=== PATIENT | male | born 1985 | race Caucasian/White ===

== ENCOUNTER 2017-11-20 13:04 | Inpatient (IN) | payer MEDICARE ==
[2017-11-20 14:38] LABS: BASO # 0.1 K/uL (0.0-0.2); BASO % 0.8 % (0.0-2.0); EOS % 0.2 % (0.0-4.0); HEMOGLOBIN 14.1 g/dL (12.0-18.0); LYMPH % 26.1 % (20.0-40.0); MEAN CELL VOLUME 87.2 fL (80.0-94.0); MEAN CORPUSCULAR HGB CONC 34.4 g/dL (33.0-37.0); MEAN PLATELET VOLUME 8.5 fL (7.2-11.7); MONO # 0.6 K/uL (0.0-0.8); MONO % 8.4 % (0.0-10.0); NEUT # 4.9 K/uL (1.8-7.0); NEUT % 64.5 % (50.0-75.0); NRBC % 0.1 % (0.0-2.0); RBC 4.7 Mil/uL (4.40-5.90); RED CELL DISTRIBUTION WIDTH 14.3 % (11.5-14.5); WHITE BLOOD COUNT 7.6 K/uL (4.8-10.8)
[2017-11-20 15:14] LABS: ACETAMINOPHEN < 10.0 ug/mL (10.0-30.0); ALB/GLOB RATIO 1.8 (1.0-2.1); ALBUMIN 4.7 g/dL (3.5-5.0); ALT/SGPT 70 U/L (21-72); AST/SGOT 58 U/L (17-59); BLOOD UREA NITROGEN 14 mg/dL (9-20); CALCIUM 9.4 mg/dl (8.6-10.4); GFR AFRICAN-AMERICAN > 60; GFR NON-AFRICAN AMERICAN > 60; SALICYLATE < 1.0 mg/dL 1
[2017-11-20 15:50] LABS: URINE BACTERIA RARE (<OCC); URINE BILIRUBIN NEGATIVE (NEGATIVE); URINE BLOOD NEGATIVE (NEGATIVE); URINE CLARITY Clear (Clear); URINE COLOR Amber (YELLOW); URINE GLUCOSE (UA) NORMAL (Normal); URINE LEUKOCYTE ESTERASE NEG Leu/uL (Negative); URINE PROTEIN 1+ mg/dL (NEGATIVE)
[2017-11-20 16:14] LABS: BARBITURATES, UR NEGATIVE (NEGATIVE); BENZODIAZEPINES, UR NEGATIVE (NEGATIVE); OPIATES, UR NEGATIVE (NEGATIVE); PHENCYCLIDINE, UR NEGATIVE (NEGATIVE)
--- NOTE | 2017-11-20 17:03 | CT ---
PROCEDURE: CT HEAD WITHOUT CONTRAST. HISTORY: AMS COMPARISON: None available. TECHNIQUE: Axial computed tomography images were obtained through the head/brain without intravenous contrast. Radiation dose: Total exam DLP = 954.36 mGy-cm. This CT exam was performed using one or more of the following dose reduction techniques: Automated exposure control, adjustment of the mA and/or kV according to patient size, and/or use of iterative reconstruction technique. FINDINGS: HEMORRHAGE: No acute parenchymal, subarachnoid or extra-axial hemorrhage. BRAIN: There appears to be some mild localized of encephalomalacia changes inferior frontal poles bilaterally, the appearance and location which suggests sequela of old trauma. . VENTRICLES: No obstructive hydrocephalus. CALVARIUM: There are no acute calvarial fracture seen. PARANASAL SINUSES: Unremarkable as visualized. No significant inflammatory changes. MASTOID AIR CELLS: Unremarkable as visualized. No inflammatory changes. OTHER FINDINGS: Orbits and contents unremarkable IMPRESSION: No acute intracranial hemorrhage. Mild encephalomalacia changes inferior frontal poles bilaterally the appearance and location which suggests the sequela of old trauma Findings discussed with Dr. Garcia at approximately 5 p.m. with written down and read back verification.
--- NOTE | 2017-11-20 23:58 | C.PDOC ---
History Of Present Illness Pt was found outside by EMS acting strange. Time Seen by Provider: 11/20/17 14:17 Chief Complaint (Nursing): Psychiatric Evaluation History Per: EMS History/Exam Limitations: clinical condition Onset/Duration Of Symptoms: Unknown (today) Current Symptoms Are (Timing): Still Present Modifying Factor(s): Marijuana Severity: Severe Additional History Per: Prior Records, Girlfriend, Law Enforcement Past Medical History Reviewed: Historical Data, Nursing Documentation, Vital Signs Vital Signs: Last Vital Signs Temp 98.5 F 11/20/17 21:24 Pulse 83 11/21/17 00:32 Resp 18 11/21/17 00:32 BP 126/73 11/21/17 00:32 Pulse Ox 97 11/21/17 00:32 - Medical History PMH: Schizophrenia (?) Family History: States: Unknown Family Hx - Social History Hx Alcohol Use: No Hx Substance Use: Yes - Immunization History Hx Tetanus Toxoid Vaccination: No Hx Influenza Vaccination: No Hx Pneumococcal Vaccination: No Review Of Systems Review Of Systems: ROS cannot be obtained secondary to pt's inabilty to answer questions. Physical Exam - Physical Exam Appears: Non-toxic, No Acute Distress, Other (Nonverbal. Flat affect) Skin: Normal Color, Warm, Dry, No Rash Head: Atraumatic, Normacephalic Eye(s): bilateral: PERRL, EOMI Neck: Normal ROM, No Midline Cervical Tenderness, No Step Off Deformity, Supple Cardiovascular: Rhythm Regular Respiratory: Normal Breath Sounds, No Accessory Muscle Use Gastrointestinal/Abdominal: Soft, No Tenderness Extremity: Normal ROM, No Deformity Neurological/Psych: No Normal Speech (not talking), Other (Moves extremities with command) Gait: Unable To Assess ED Course And Treatment - Laboratory Results Result Diagrams: 11/20/17 14:35 11/20/17 14:35 Lab Interpretation: No Acute Changes O2 Sat by Pulse Oximetry: 97 Pulse Ox Interpretation: Normal Progress Note: Pt was initialy a Dustin Thomas as he could not tell us his name. However we were able to identify him throught [employer] and found his girlfriend who came in and identified him. She states that he has a psych history. Pt was seen by the rock room worker who d/w Dr. Segundo. He recommended treatment with Haldol and Ativan. Pt is medically stable for psychiatric admission. Disposition - Disposition Disposition Time: 01:00 Condition: STABLE Forms: [facility] (Georgian) - Clinical Impression Clinical Impression: Schizophrenia Physician Patient Turnover Patient Signed Over To: Klaus Madsen Handoff Comments: pending psychiatric evaluation/disposition.
--- NOTE | 2017-11-21 10:32 | RAD ---
HISTORY: r/o infiltrate bed 8 COMPARISON: No prior. FINDINGS: LUNGS: No active pulmonary disease. PLEURA: No significant pleural effusion identified, no pneumothorax apparent. CARDIOVASCULAR: Normal. OSSEOUS STRUCTURES: No significant abnormalities. VISUALIZED UPPER ABDOMEN: Normal. OTHER FINDINGS: None. IMPRESSION: No active disease.
--- NOTE | 2017-11-21 12:10 | PCM.PSYCH ---
Initial Psychiatric Evaluation - Initial Psychiatric Evaluation Type of Admission: Voluntary Legal Status: Capacity Chief Complaint (in patient's own words): I became confused.' History of Present Illness and Precipitating Events: Patient is a 32-year-old single male, who lives with his GF, presented to the ED for catatonia. Patient has history of multiple inpatient psychiatric hospitalizations. He was last discharged from [facility], in 2017. Since then he is following up off and on with Dr Pope. He last saw Dr. Pope 11/14/17. As per the patient's girlfriend Thelma Sibley ([phone]), patient has a history of non- compliance with outpatient treatment and psychotropic medications especially when he feels mentally better. 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 The extra workload has been stressful and hard for him to adjust. So was partially non complaint with the meds. However, this current decompensation has been the worst. As per her he had poor sleep for past 5 days, and he is becoming more irritable and agitated since then. Yesterday he started becoming catatonic, and stopped speaking. Yesterday girlfriend left for work at 4am and when she returned at 11:30am patient and his car were missing. Girlfriend grew concerned after having no contact with patient after so long so she had a Missing Person Report with [facility] completed on him. Girlfriend denies patient using drugs but states he smokes cigarettes and drinks alcohol occasionally. She denies past/current suicidal/homicidal ideation and states he has no history of violent behavior. PMH None reported Current Medications: Active Medications Generic Name Dose Route Start Last Admin Trade Name Freq PRN Reason Stop Dose Admin Benztropine Mesylate 0.5 mg 11/21/17 10:00 11/21/17 09:34 Cogentin PO 0.5 mg BID MAHESH Administration Haloperidol 2 mg 11/21/17 10:11/21/17 09:34 Haldol PO 2 mg BID MAHESH Administration Haloperidol Lactate 5 mg 11/21/17 08:59 Haldol IM Q4H PRN Agitation Lorazepam 1 mg 11/21/17 10:00 11/21/17 09:34 Ativan PO 1 mg TID MAHESH Administration Past Psychiatric History - Past Psychiatric History Previous Treatment History: Inpatient Pertinent Medical Hx (Current Medical&Sleep Prob, Allergies): Allergies Allergy/AdvReac Type Severity Reaction Status Date / Time No Known Allergies Allergy Unverified 11/20/17 13:21 Unobtainable 11/20/17 Review of Systems - Review of Systems All systems: reviewed and no additional remarkable complaints except - Psychiatric Psychiatric: Anxiety, Auditory Hallucinations, Irritability, Mood Swings Mental Status Examination - Personal Presentation Personal Presentation: Looks stated age - Affect Affect: Broad - Motor Activity Motor Activity: Calm - Reliability in Providing Information Reliability in Providing Information: Poor, due to alteration in thoughts, Poor , due to altered mood - Speech Speech: Disorganized - Mood Mood: Anxious - Formal Thought Process Formal Thought Process: Delusions, Paranoia, Loosening of associations - Hallucinations/Delusions Delusions: Persecution - Obsessions/Compulsions Obsessions: No Compulsions: No - Cognitive Functions Orientation: Person, Place, Situation, Time Sensorium: Alert Attention/Concentration: Attentive Abstract Thinking: [place] Estimate of Intelligence: Below average Judgement: Imparied, as evidence by: Poor judgement, Imparied, as evidence by: Lack of insight into illness - Risk Risk: Diminished functioning - Strength & Assets Inventory Strength & Assets Inventory: Family support DSM 5 DX - DSM 5 DSM 5 Diagnosis: Bipolar disorder mixed severe with psychotic features r/o Schizophrenia catatonic type - Recommended/Plan of Treatment Treatment Recommendations and Plan of Treatment: Bipolar disorder mixed severe with psychotic features r/o Schizophrenia catatonic type -CBT -Psychoeducation -Supportive therapy, group therapy, individual therapy -Risperdal 2 mg PO HS -Cogentin 1 mg by mouth HS -Trazodone 50 mg by mouth daily at bedtime -Hydroxyzine 25 mg by mouth every 6 hours when necessary -Ativan 1 mg by mouth 3 times a day Cannabis use disorder moderate -Monitor signs and symptoms -Use [place] for abstinence
--- NOTE | 2017-11-21 13:21 | CARD ---
APPROVED REPORT EKG Measurement Heart [id number] <Conclusion> Unusual P axis, possible ectopic atrial rhythm Please repeat Abnormal ECG
--- NOTE | 2017-11-21 14:33 | PCM.BM ---
<Karol Kingn - Last Filed: 11/21/17 14:30> Treatment Plan Problems - Problems identified on initial assessmt Depression Date Initiated: 11/21/17 Time Initiated: 14:31 Assessment reference: NA Status: Active Anxiety Date Initiated: 11/21/17 Time Initiated: 14:31 Assessment reference: NA Status: Active Treatment assets and liabiliti Patient Assests: adapts well, cooperative, ADL independent, physically healthy, good support system Patient Liabilities: substance abuse - Milieu Protocol Maintain good personal hygiene: daily Encourage regular showers, daily Remind patient to perform daily oral care, daily Assist patient to perform ADL's Conduct patient checks and document Observation sheet: Q15 minutes Maintain personal safety: every shift Educate patient to report safety concerns to staff, every shift Monitor environment for contraband/sharps Medication safety: Monitor for expected outcome, potential side effects: every shift, Assess barriers to learning: every shift, Assess readiness for medication education: every shift <Viridiana Rendon - Last Filed: 11/23/17 11:40> Family Contact Family involvement: Family/SO is involved Family contact: Patient agrees to contact Family contact name: Mckenzie Radford-girlfriend Family contacted how many times per week?: 1 - Goals for Treatment Patient goals for treatment: "I want to go back to outpatient treatment." Discharge/Continuing Care - Education Needs Education Needs: Patient Medication, Patient Coping Skills - Discharge Discharge Criteria: Tolerates medication w/o severe side effects, Free of paranoid thoughts, Reduction of target symptoms Discharge to:: Home, With Family - Treatment Team Participation Discussed with Family/SO: No Was Patient/Family/SO present at Treatment Team Meeting: Yes <Lety Segundo - Last Filed: 11/25/17 08:08> - Diagnosis (1) Schizophrenia Status: Acute Interventions: 11/25/17 08:07 * Assess/adjust medications daily and /or as needed * See patient on an individual basis 7x/week to assess status of hallucinations * Discuss risks, benefits, side effects and alternatives of medications *
--- NOTE | 2017-11-22 16:01 | PCM.PYCHPN ---
Psychiatric Progress Note - Psychiatric Progress Note Patient seen today, length of contact: 15 min Patient Chief Complaint: I am feeling gilda.' Problems Identified/Issues Discussed: Patient seen and evaluated, chart reviewed and discussed with the nurse. Patient remained isolated, confined and withdrawn. Patient still appears catatonic and mute. He appears more organized and less internally preoccupied than yesterday He is taking medication and denies any side effects. Symptoms are improving but needs more time for stabilization. Supportive therapy and psychoeducation were given. Medication Change: Yes (increase risperdal) Medical Record Reviewed: Yes Mental Status Examination - Cognitive Function Orientation: Person, Place, Situation, Time Memory: Intact Attention: Poor Concentration: Poor Association: Loose Fund of Knowledge: Poor - Mood Mood: Anxious - Affect Affect: Flat - Speech Speech: Soft - Formal Thought Process Formal Thought Process: Delusions, Paranoia, Loosening of associations - Suicidal Ideation Suicidal Ideation: No - Homicidal Ideation Homicidal Ideation: No Goal/Treatment Plan - Goal/Treatment Plan Need for Continued Stay: Severe depression anxiety, Severe functional impairment Progress Toward Problem(s) and Goals/Treatment Plan: Bipolar disorder mixed severe with psychotic features r/o Schizophrenia catatonic type -CBT -Psychoeducation -Supportive therapy, group therapy, individual therapy -Risperdal 2 mg PO HS -Risperdal 1 mg PO daily -Start depakote 250 mg PO BID -Cogentin 0.5 mg by mouth BID -Trazodone 50 mg by mouth daily at bedtime -Hydroxyzine 25 mg by mouth every 6 hours when necessary -Ativan 1 mg by mouth 3 times a day Cannabis use disorder moderate -Monitor signs and symptoms -Use [place] for abstinence - Smoking Cessation Smoking Cessation Initiated: No
[2017-11-22] MEDS: Divalproex 250 mg DR Tab PO SCH (17:24)
[2017-11-23] MEDS: Divalproex 250 mg DR Tab PO SCH ×2 (09:55→17:10)
[2017-11-24] MEDS: Divalproex 250 mg DR Tab PO SCH (09:12)
[2017-11-24] MEDS: Divalproex 500 mg DR Tab PO SCH (17:45)
--- NOTE | 2017-11-25 08:09 | PCM.PYCHPN ---
Psychiatric Progress Note - Psychiatric Progress Note Patient seen today, length of contact: 15 min Patient Chief Complaint: "I am fine" Problems Identified/Issues Discussed: The pt is seen, chart reviewed, case discussed with staff. Support and psychoeducation given No new symptoms reported, improving slowly and needs more time He is thought disordered, paranoid and odd No SEs from medications, risks discussed. After care discussed Medication Change: Yes (increase risperdal) Medical Record Reviewed: Yes Mental Status Examination - Cognitive Function Orientation: Person, Place, Situation, Time Memory: Intact Attention: Poor Concentration: Poor Association: Loose Fund of Knowledge: Poor - Mood Mood: Anxious - Affect Affect: Flat - Speech Speech: Soft - Formal Thought Process Formal Thought Process: Delusions, Paranoia, Loosening of associations - Suicidal Ideation Suicidal Ideation: No - Homicidal Ideation Homicidal Ideation: No Goal/Treatment Plan - Goal/Treatment Plan Need for Continued Stay: Discharge may exacerbated symptoms, Severe functional impairment Progress Toward Problem(s) and Goals/Treatment Plan: Continue medications with adjustments Support and psychoeducation daily Attend groups and activities daily After care planning by ELVIA
--- NOTE | 2017-11-25 08:11 | PCM.PYCHPN ---
Psychiatric Progress Note - Psychiatric Progress Note Patient seen today, length of contact: 16 min Patient Chief Complaint: No c/c - seen as a follow up He tried to communicate by sign language (?) Problems Identified/Issues Discussed: The pt is seen, chart reviewed, case discussed with staff. The pt is compliant with medications and reports no side-effects. He is still quite psychotic but taking meds Symptoms are slowly improving but needs more time to stabilize. Support and psychoeducation given. Medication Change: Yes (increase risperdal) Medical Record Reviewed: Yes Mental Status Examination - Cognitive Function Orientation: Person, Place, Situation, Time Memory: Intact Attention: Poor Concentration: Poor Association: Loose Fund of Knowledge: Poor - Mood Mood: Anxious - Affect Affect: Flat - Speech Speech: Soft - Formal Thought Process Formal Thought Process: Delusions, Paranoia, Loosening of associations - Suicidal Ideation Suicidal Ideation: No - Homicidal Ideation Homicidal Ideation: No Goal/Treatment Plan - Goal/Treatment Plan Need for Continued Stay: Discharge may exacerbated symptoms, Severe functional impairment Progress Toward Problem(s) and Goals/Treatment Plan: Continue medications with adjustments Support and psychoeducation daily Attend groups and activities daily After care planning by ELVIA Estimated Date of D/C: 11/29/17
[2017-11-25] MEDS: Divalproex 500 mg DR Tab PO SCH ×2 (09:42→17:23)
--- NOTE | 2017-11-25 11:43 | PCM.PYCHPN ---
Psychiatric Progress Note - Psychiatric Progress Note Patient seen today, length of contact: 15 min Patient Chief Complaint: "I'm OK" Problems Identified/Issues Discussed: The pt is seen, chart reviewed, case discussed with staff. He takes meds and is slightly better than before but is still very odd, bizarre , internally preoccupied Paranoid and guarded No SEs from meds Support and psychoed given Medication Change: No Medical Record Reviewed: Yes Mental Status Examination - Cognitive Function Orientation: Person, Place, Situation, Time Memory: Intact Attention: Poor Concentration: Poor Association: Loose Fund of Knowledge: Poor - Mood Mood: Anxious - Affect Affect: Flat - Speech Speech: Soft - Formal Thought Process Formal Thought Process: Delusions, Paranoia, Loosening of associations - Suicidal Ideation Suicidal Ideation: No - Homicidal Ideation Homicidal Ideation: No Goal/Treatment Plan - Goal/Treatment Plan Need for Continued Stay: Discharge may exacerbated symptoms, Severe functional impairment Progress Toward Problem(s) and Goals/Treatment Plan: Continue medications with adjustments Support and psychoeducation daily Attend groups and activities daily After care planning by ELVIA Estimated Date of D/C: 11/29/17
[2017-11-26] MEDS: Divalproex 500 mg DR Tab PO SCH ×2 (09:12→17:16)
--- NOTE | 2017-11-26 10:16 | PCM.PYCHPN ---
Psychiatric Progress Note - Psychiatric Progress Note Patient seen today, length of contact: 15 min Patient Chief Complaint: I am feeling gilda.' Problems Identified/Issues Discussed: Patient seen and evaluated, chart reviewed and discussed with the nurse. Patient remained isolated, confined and withdrawn. Patient still appears catatonic and mute. He appears more organized and less internally preoccupied than yesterday He is taking medication and denies any side effects. Symptoms are improving but needs more time for stabilization. Supportive therapy and psychoeducation were given. Medication Change: No Medical Record Reviewed: Yes Mental Status Examination - Cognitive Function Orientation: Person, Place, Situation, Time Memory: Intact Attention: Poor Concentration: Poor Association: Loose Fund of Knowledge: Poor - Mood Mood: Anxious - Affect Affect: Flat - Speech Speech: Soft - Formal Thought Process Formal Thought Process: Delusions, Paranoia, Loosening of associations - Suicidal Ideation Suicidal Ideation: No - Homicidal Ideation Homicidal Ideation: No Goal/Treatment Plan - Goal/Treatment Plan Need for Continued Stay: Discharge may exacerbated symptoms, Severe functional impairment Progress Toward Problem(s) and Goals/Treatment Plan: Bipolar disorder mixed severe with psychotic features r/o Schizophrenia catatonic type -CBT -Psychoeducation -Supportive therapy, group therapy, individual therapy -Risperdal 2 mg PO HS -Risperdal 1 mg PO daily -Start depakote 250 mg PO BID -Cogentin 0.5 mg by mouth BID -Trazodone 50 mg by mouth daily at bedtime -Hydroxyzine 25 mg by mouth every 6 hours when necessary -Ativan 1 mg by mouth 3 times a day Cannabis use disorder moderate -Monitor signs and symptoms -Use [place] for abstinence Estimated Date of D/C: 11/29/17
[2017-11-27] MEDS: Divalproex 500 mg DR Tab PO SCH ×2 (09:54→17:14)
--- NOTE | 2017-11-27 17:20 | PCM.PYCHPN ---
Psychiatric Progress Note - Psychiatric Progress Note Patient seen today, length of contact: 15 min Patient Chief Complaint: I am feeling gilda.' Problems Identified/Issues Discussed: Patient seen and evaluated, chart reviewed and discussed with the nurse. He appears more organized and less internally preoccupied than yesterday Patient remained isolated, confined and withdrawn. He is taking medication and denies any side effects. Symptoms are improving but needs more time for stabilization. Supportive therapy and psychoeducation were given. Medication Change: No Medical Record Reviewed: Yes Mental Status Examination - Cognitive Function Orientation: Person, Place, Situation, Time Memory: Intact Attention: Poor Concentration: Poor Association: Loose Fund of Knowledge: Poor - Mood Mood: Anxious - Affect Affect: Flat - Speech Speech: Soft - Formal Thought Process Formal Thought Process: Delusions, Paranoia, Loosening of associations - Suicidal Ideation Suicidal Ideation: No - Homicidal Ideation Homicidal Ideation: No Goal/Treatment Plan - Goal/Treatment Plan Need for Continued Stay: Discharge may exacerbated symptoms, Severe functional impairment Progress Toward Problem(s) and Goals/Treatment Plan: Bipolar disorder mixed severe with psychotic features r/o Schizophrenia catatonic type -CBT -Psychoeducation -Supportive therapy, group therapy, individual therapy -Risperdal 2 mg PO HS -Risperdal 1 mg PO daily -Start depakote 250 mg PO BID -Cogentin 0.5 mg by mouth BID -Trazodone 50 mg by mouth daily at bedtime -Hydroxyzine 25 mg by mouth every 6 hours when necessary -Ativan 1 mg by mouth 3 times a day Cannabis use disorder moderate -Monitor signs and symptoms -Use [place] for abstinence Estimated Date of D/C: 11/29/17
[2017-11-28] MEDS: Divalproex 500 mg DR Tab PO SCH ×2 (10:33→17:19)
[2017-11-29] MEDS: Divalproex 500 mg DR Tab PO SCH ×2 (10:11→17:03)
--- NOTE | 2017-11-29 14:41 | PCM.PYCHPN ---
Psychiatric Progress Note - Psychiatric Progress Note Patient seen today, length of contact: 15 min Patient Chief Complaint: I am feeling anxious.' Problems Identified/Issues Discussed: Patient seen and evaluated, chart reviewed and discussed with the nurse. Patient remained isolated, confined and withdrawn. He still appears paranoid and delusional. As per the staff, he remained confined in his room whole day, when doctor asked him that he will discharge in 2 days. He appears more organized but remained internally preoccupied. He is taking medication and denies any side effects. Symptoms are improving but needs more time for stabilization. Supportive therapy and psychoeducation were given. Medication Change: Yes (Invega sustenna) Medical Record Reviewed: Yes Mental Status Examination - Cognitive Function Orientation: Person, Place, Situation, Time Memory: Intact Attention: WNL Concentration: Poor Association: Loose Fund of Knowledge: Poor - Mood Mood: Anxious - Affect Affect: Flat - Speech Speech: Soft - Formal Thought Process Formal Thought Process: Delusions, Paranoia, Loosening of associations - Suicidal Ideation Suicidal Ideation: No - Homicidal Ideation Homicidal Ideation: No Goal/Treatment Plan - Goal/Treatment Plan Need for Continued Stay: Discharge may exacerbated symptoms, Severe functional impairment Progress Toward Problem(s) and Goals/Treatment Plan: Bipolar disorder mixed severe with psychotic features r/o Schizophrenia catatonic type -CBT -Psychoeducation -Supportive therapy, group therapy, individual therapy -Risperdal 2 mg PO HS -Risperdal 2 mg PO daily -depakote 500 mg PO BID -Cogentin 1 mg by mouth BID -Trazodone 50 mg by mouth daily at bedtime -Hydroxyzine 25 mg by mouth every 6 hours when necessary -Ativan 1 mg by mouth 3 times a day -Invega sustenna 234 mg IM monthly Cannabis use disorder moderate -Monitor signs and symptoms -Use [place] for abstinence Estimated Date of D/C: 11/29/17
[2017-11-30] MEDS: Divalproex 500 mg DR Tab PO SCH ×2 (10:08→17:06)
--- NOTE | 2017-11-30 13:42 | PCM.BM ---
<TaiwoAbyViridiana - Last Filed: 11/30/17 13:42> Treatment Plan Problems - Problems identified on initial assessmt Depression Date Initiated: 11/21/17 Time Initiated: 14:31 Assessment reference: NA Status: Active Anxiety Date Initiated: 11/21/17 Time Initiated: 14:31 Assessment reference: NA Status: Active Treatment assets and liabiliti Patient Assests: adapts well, cooperative, ADL independent, physically healthy, good support system Patient Liabilities: substance abuse - Milieu Protocol Maintain good personal hygiene: daily Encourage regular showers, daily Remind patient to perform daily oral care, daily Assist patient to perform ADL's Conduct patient checks and document Observation sheet: Q15 minutes Maintain personal safety: every shift Educate patient to report safety concerns to staff, every shift Monitor environment for contraband/sharps Medication safety: Monitor for expected outcome, potential side effects: every shift, Assess barriers to learning: every shift, Assess readiness for medication education: every shift Milieu Narrative: Bipolar disorder mixed severe with psychotic features r/o Schizophrenia catatonic type -CBT -Psychoeducation -Supportive therapy, group therapy, individual therapy -Risperdal 2 mg PO HS -Risperdal 1 mg PO daily -Start depakote 250 mg PO BID -Cogentin 0.5 mg by mouth BID -Trazodone 50 mg by mouth daily at bedtime -Hydroxyzine 25 mg by mouth every 6 hours when necessary -Ativan 1 mg by mouth 3 times a day Cannabis use disorder moderate -Monitor signs and symptoms -Use CA for abstinence Family Contact Family involvement: Family/SO is involved Family contact: Patient agrees to contact Family contact name: Mckenzie Radford-girlfriend Family contacted how many times per week?: 1 - Goals for Treatment Patient goals for treatment: "I want to go back to outpatient treatment." Discharge/Continuing Care - Education Needs Education Needs: Patient Medication, Patient Coping Skills - Discharge Discharge Criteria: Tolerates medication w/o severe side effects, Free of paranoid thoughts, Reduction of target symptoms Discharge to:: Home, With Family - Treatment Team Participation Patient/Family/SO Statement: Bipolar disorder mixed severe with psychotic features r/o Schizophrenia catatonic type -CBT -Psychoeducation -Supportive therapy, group therapy, individual therapy -Risperdal 2 mg PO HS -Risperdal 1 mg PO daily -Start depakote 250 mg PO BID -Cogentin 0.5 mg by mouth BID -Trazodone 50 mg by mouth daily at bedtime -Hydroxyzine 25 mg by mouth every 6 hours when necessary -Ativan 1 mg by mouth 3 times a day Cannabis use disorder moderate -Monitor signs and symptoms -Use CA for abstinence Discussed with Family/SO: No Was Patient/Family/SO present at Treatment Team Meeting: Yes Treatment Plan Review - Problem Depression Time Initiated: 14:31 Anxiety Time Initiated: 14:31 - Discharge / Continuing Care Discharge to:: Home, With Family Behavioral Health Services: Outpatient therapy Health Needs: Medications/Rx <Lyudmila Liang - Last Filed: 12/01/17 01:55> - Diagnosis (1) Schizophrenia Status: Acute Interventions: 11/25/17 08:07 * Assess/adjust medications daily and /or as needed * See patient on an individual basis 7x/week to assess status of hallucinations * Discuss risks, benefits, side effects and alternatives of medications *
--- NOTE | 2017-12-01 01:32 | PCM.PYCHPN ---
Psychiatric Progress Note - Psychiatric Progress Note Patient seen today, length of contact: 15 min Patient Chief Complaint: I am feeling anxious.' Problems Identified/Issues Discussed: Patient seen and evaluated, chart reviewed and discussed with the nurse. As per the staff, patient remained isolated, confined and withdrawn. He still appears paranoid and delusional. He appears more organized but remained internally preoccupied. He is taking medication and denies any side effects. Symptoms are improving but needs more time for stabilization. Supportive therapy and psychoeducation were given. Medication Change: Yes (Invega sustenna) Medical Record Reviewed: Yes Mental Status Examination - Cognitive Function Orientation: Person, Place, Situation, Time Memory: Intact Attention: WNL Concentration: Poor Association: Loose Fund of Knowledge: Poor - Mood Mood: Anxious - Affect Affect: Flat - Speech Speech: Soft - Formal Thought Process Formal Thought Process: Delusions, Paranoia, Loosening of associations - Suicidal Ideation Suicidal Ideation: No - Homicidal Ideation Homicidal Ideation: No Goal/Treatment Plan - Goal/Treatment Plan Need for Continued Stay: Discharge may exacerbated symptoms, Severe functional impairment Progress Toward Problem(s) and Goals/Treatment Plan: Bipolar disorder mixed severe with psychotic features r/o Schizophrenia catatonic type -CBT -Psychoeducation -Supportive therapy, group therapy, individual therapy -Risperdal 2 mg PO HS -Risperdal 2 mg PO daily -depakote 500 mg PO BID -Cogentin 1 mg by mouth BID -Trazodone 50 mg by mouth daily at bedtime -Hydroxyzine 25 mg by mouth every 6 hours when necessary -Ativan 1 mg by mouth 3 times a day -Invega sustenna 234 mg IM monthly Cannabis use disorder moderate -Monitor signs and symptoms -Use ME for abstinence Estimated Date of D/C: 11/29/17
[2017-12-01] MEDS: Divalproex 500 mg DR Tab PO SCH ×2 (09:03→17:00)
[2017-12-01] MEDS ORDERED: Paliperidone Palmitate 234 MG/1.5 ML SYR IM ONE (10:00)
--- NOTE | 2017-12-01 19:16 | PCM.PYCHPN ---
Psychiatric Progress Note - Psychiatric Progress Note Patient seen today, length of contact: 15 min Patient Chief Complaint: I'm feeling better now and I am coming out of my room without any distress. Problems Identified/Issues Discussed: Patient seen, chart reviewed, case discussed with the staff. Issues related to illness and treatment were discussed with the patient and staff. Reported compliant with treatment with no adverse affects. Tolerating treatment very well. Feeling much better. Patient reported he is not isolative any more and he has no distress for coming out of his room. Patient is improving but needs more time for stabilization. Aftercare discussed with the patient. At the time of evaluation, patient was awake alert oriented 3, had no delusions , no auditory or visual hallucinations, no suicidal ideations or homicidal ideations. Medical Problems: None reported Diagnostic Results: Reviewed DSM 5 Symptoms Update: Some improvement with treatment Medication Change: No Medical Record Reviewed: Yes Mental Status Examination - Cognitive Function Orientation: Person, Place, Situation, Time Memory: Intact Attention: WNL Concentration: WNL Association: WN Fund of Knowledge: [facility] Decription of patient's judgement and insights: Fair - Mood Mood: Anxious (Much less than before) - Affect Affect: Flat - Speech Speech: Soft - Formal Thought Process Formal Thought Process: Paranoia, Loosening of associations - Suicidal Ideation Suicidal Ideation: No - Homicidal Ideation Homicidal Ideation: No Goal/Treatment Plan - Goal/Treatment Plan Need for Continued Stay: Remain at risks for inpatient hospitalization, Discharge may exacerbated symptoms, Severe functional impairment Progress Toward Problem(s) and Goals/Treatment Plan: Improving with treatment. Patient education. Supportive therapy. Continue rest of the treatment as before. Patient will go to [facility] for follow-up care after discharge from the hospital. Estimated Date of D/C: 12/04/17 - Smoking Cessation Smoking Cessation Initiated: Yes
[2017-12-02 06:32] VITALS: RESP 20; O2SAT 98
[2017-12-02] MEDS: Divalproex 500 mg DR Tab PO SCH ×2 (09:59→17:30)
--- NOTE | 2017-12-02 19:26 | PCM.PYCHPN ---
Psychiatric Progress Note - Psychiatric Progress Note Patient seen today, length of contact: 15 min Patient Chief Complaint: I'm feeling much better now and I am coming out of my room without any distress. Problems Identified/Issues Discussed: Patient seen, chart reviewed, case discussed with the staff. Issues related to illness and treatment were discussed with the patient and staff. Reported compliant with treatment with no adverse affects. Tolerating treatment very well. Feeling much better. Patient was visible more on the unit. Staff also confirmed the above. Patient is improving but needs more time for stabilization. Aftercare discussed with the patient. At the time of evaluation, patient was awake alert oriented 3, had no delusions , no auditory or visual hallucinations, no suicidal ideations or homicidal ideations. Medical Problems: None reported Diagnostic Results: Reviewed DSM 5 Symptoms Update: Improving with treatment Medication Change: No Medical Record Reviewed: Yes Mental Status Examination - Cognitive Function Orientation: Person, Place, Situation, Time Memory: Intact Attention: WNL Concentration: WNL Association: WN Fund of Knowledge: [facility] Decription of patient's judgement and insights: Fair - Mood Mood: Anxious (Much less than before) - Affect Affect: Other (Appropriate) - Speech Speech: Soft - Formal Thought Process Formal Thought Process: No Impairment - Suicidal Ideation Suicidal Ideation: No - Homicidal Ideation Homicidal Ideation: No Goal/Treatment Plan - Goal/Treatment Plan Need for Continued Stay: Remain at risks for inpatient hospitalization, Discharge may exacerbated symptoms, Severe functional impairment Progress Toward Problem(s) and Goals/Treatment Plan: Improving with treatment. Patient education. Supportive therapy. Continue treatment as before. Patient will go to [facility] for follow-up care after discharge from the hospital. Estimated Date of D/C: 12/04/17 - Smoking Cessation Smoking Cessation Initiated: Yes
[2017-12-03 06:20] VITALS: BP 130/78; PULSE 104; TEMP 98.4
--- NOTE | 2017-12-03 10:14 | PCM.PYCHDC ---
Mental Status Examination - Mental Status Examination Orientation: Person, Place, Situation, Time Memory: Intact Mood: Neutral Affect: Constricted Speech: Soft Attention: WNL Concentration: WNL Association: WNL Fund of Knowledge: WNL Formal Thought Process: No Impairment Description of patient's judgement and insight: good, fair Psychotic Thoughts and Behaviors: denies any AVH Suicidal Ideation: No Current Homicidal Ideation?: No Discharge Summary - Discharge Note Reason for Hospitalization: Patient is a 32-year-old single male, who lives with his GF, presented to the ED for catatonia. Patient has history of multiple inpatient psychiatric hospitalizations. He was last discharged from [facility], in 2017. Since then he is following up off and on with Dr Pope. He last saw Dr. Pope 11/14/17. As per the patient's girlfriend Thelma Sibley ([phone]), patient has a history of non- compliance with outpatient treatment and psychotropic medications especially when he feels mentally better. 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 The extra workload has been stressful and hard for him to adjust. So was partially non complaint with the meds. However, this current decompensation has been the worst. As per her he had poor sleep for past 5 days, and he is becoming more irritable and agitated since then. Yesterday he started becoming catatonic, and stopped speaking. Yesterday girlfriend left for work at 4am and when she returned at 11:30am patient and his car were missing. Girlfriend grew concerned after having no contact with patient after so long so she had a Missing Person Report with [facility] completed on him. Girlfriend denies patient using drugs but states he smokes cigarettes and drinks alcohol occasionally. She denies past/current suicidal/homicidal ideation and states he has no history of violent behavior. Consultations:: List each consultation separately and include: 1. Reason for request. 2. Findings. 3. Follow-up Summary of Hospital Course include:: 1. Description of specific treatment plan utilized for patients during their course of treatmen. 2. Summarize the time- course for resolution of acute symptoms and/or regressed behaviors. 3. Describe issues identified and worked on during hospitalization. 4. Describe medication utilized. 5. Describe medical problems identified and treated. 6. Reassessment of suicide risk Summary of Hospital Course: Patient is a 32-year-old single male, who lives with his GF, presented to the ED for catatonia. Patient has history of multiple inpatient psychiatric hospitalizations. He was last discharged from [facility], in 2017. Since then he is following up off and on with Dr Pope. He last saw Dr. Pope 11/14/17. As per the patient's girlfriend Thelma Sibley ([phone]), patient has a history of non- compliance with outpatient treatment and psychotropic medications especially when he feels mentally better. 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 The extra workload has been stressful and hard for him to adjust. So was partially non complaint with the meds. However, this current decompensation has been the worst. As per her he had poor sleep for past 5 days, and he is becoming more irritable and agitated since then. Yesterday he started becoming catatonic, and stopped speaking. Yesterday girlfriend left for work at 4am and when she returned at 11:30am patient and his car were missing. Girlfriend grew concerned after having no contact with patient after so long so she had a Missing Person Report with [facility] completed on him. Girlfriend denies patient using drugs but states he smokes cigarettes and drinks alcohol occasionally. She denies past/current suicidal/homicidal ideation and states he has no history of violent behavior. PMH None reported - Diagnosis (1) Schizophrenia Current Visit: Yes Status: Acute - Final Diagnosis (DSM 5) Condition upon Discharge: STABLE Disposition: HOME/ ROUTINE Follow-up Treatment Plan: Bipolar disorder mixed severe with psychotic features r/o Schizophrenia catatonic type -CBT -Psychoeducation -Supportive therapy, group therapy, individual therapy -Risperdal 2 mg PO HS -Risperdal 2 mg PO daily -depakote 500 mg PO BID -Cogentin 1 mg by mouth BID -Trazodone 50 mg by mouth daily at bedtime -Hydroxyzine 25 mg by mouth every 6 hours when necessary -Ativan 1 mg by mouth 3 times a day -Invega sustenna 234 mg IM monthly Cannabis use disorder moderate -Monitor signs and symptoms -Use RI for abstinence Prescriptions/Medication Reconciliation: Benztropine [Cogentin] 1 mg PO BID #60 tab Divalproex [Depakote DR] 500 mg PO BID #60 tcp Paliperidone Palmitate [Invega Sustenna] 234 mg IM ONCE #1 syr risperiDONE [RisperDAL Tab] 2 mg PO DAILY #60 tab traZODone [Desyrel] 50 mg PO HS PRN #30 tab PRN Reason: Insomnia
[2017-12-03] MEDS: Divalproex 500 mg DR Tab PO SCH (10:31)
== END 2017-12-03 11:42 | disposition home or self-care (01) | DRG 885 ==
LOC: EDBD 13:04 → C.ER 13:04 → C.5E 11-21 11:21
PROVIDERS: ADMIT Psychiatry & Neurology Psychiatry; ATTEND Psychiatry & Neurology Psychiatry
PROC: GZ3ZZZZ Medication Management (ICD-10-PCS; principal; 2017-11-21)
PROC: HZ99ZZZ Pharmacotherapy for Substance Abuse Treatment, Other Replacement Medication (ICD-10-PCS; 2017-11-21)
PROC: GZHZZZZ Group Psychotherapy (ICD-10-PCS; 2017-11-21)
PROC: GZ56ZZZ Individual Psychotherapy, Supportive (ICD-10-PCS; 2017-11-21)
DX: F31.64 Bipolar disorder, current episode mixed, severe, with psychotic features (principal); F20.2 Catatonic schizophrenia; F12.10 Cannabis abuse, uncomplicated; F17.210 Nicotine dependence, cigarettes, uncomplicated; Z91.19 Patient's noncompliance with other medical treatment and regimen